=== PATIENT | male | born 1995 | race Caucasian/White ===

== ENCOUNTER 2020-01-20 13:34 | Emergency (ER) | payer BC ==
[~2020-01-20] VITALS: Ht 185.4 cm; Wt 63.6 kg
[2020-01-20 13:41] VITALS: TEMP 98.7
[2020-01-20 14:59] VITALS: BP 116/71; PULSE 81
== END 2020-01-20 15:00 | disposition home or self-care (01) ==
LOC: COL.ER 13:34
DX: S52.502A Unspecified fracture of the lower end of left radius, initial encounter for closed fracture (principal); X50.0XXA Overexertion from strenuous movement or load, initial encounter; Y93.67 Activity, basketball; Y92.830 Public park as the place of occurrence of the external cause
CPT/HCPCS: Q4021